=== PATIENT | female | born 1945 | race Caucasian/White ===

== ENCOUNTER 2017-06-04 18:58 | Emergency (ER) | payer MEDICARE, BC ==
[2012-06-09 15:25] VITALS: BMI 26.1
[2017-06-04 22:20] LABS: BASOPHILS 0.3 % (0-2); EOSINOPHILS 1.8 % (0-7); HEMATOCRIT 43.2 % (36.0-48.0); HEMOGLOBIN 14.6 g/dL (12-16); LYMPHOCYTES 24.1 % (15-50); MCH 30.7 pg (26.0-34.0); MCHC 33.8 g/dL (31.0-37.0); MCV 90.9 fL (80.0-100.0); MEAN PLATELET VOLUME 10.6 fL (7.4-10.4); MONOCYTES 9.1 % (2-11); NEUTROPHILS 64.7 % (40-80); PLATELET COUNT 182 10x3/uL (130-400); RBC 4.75 10x6/uL (4.00-5.40); RDW 13.2 % (11.5-14.5); WBC 6.7 10x3/uL (4.8-10.8)
[2017-06-04 22:26] LABS: APPEARANCE HAZY (CLEAR); COLOR YELLOW (YELLOW); LEUKOCYTE ESTERASE 1+ (NEGATIVE); SPECIFIC GRAVITY 1.015 (1.005-1.020)
[2017-06-04 22:27] LABS: BILIRUBIN NEGATIVE (NEGATIVE); GLUCOSE NEGATIVE (NEGATIVE); KETONE LARGE mg/dL (NEGATIVE); NITRITE NEGATIVE (NEGATIVE); PROTEIN TRACE mg/dL (NEGATIVE); UROBILINOGEN NORMAL (NORMAL)
[2017-06-04 22:29] LABS: BACTERIA FEW /hpf (NONE SEEN)
[2017-06-04 22:43] LABS: ALBUMIN 3.9 g/dL (3.4-5.0); ALKALINE PHOSPHATASE 58 U/L (46-116); ALT (SGPT) 22 U/L (10-68); CALC OSMOLALITY 279 mosm/kg (275-300); CALCIUM 8.7 mg/dL (8.5-10.1); CARBON DIOXIDE 23.8 mmol/L (21.0-32.0); CHLORIDE - SERUM 104 mmol/L (98-107); CREATININE - SERUM 0.7 mg/dL (0.6-1.3); GLUCOSE 102 mg/dL (74-106); POTASSIUM - SERUM 3.9 mmol/L (3.5-5.1); PROTEIN - SERUM 7.4 g/dL (6.4-8.2); SODIUM 139 mmol/L (136-145); UREA NITROGEN 18 mg/dL (7-18); eGFR NON AFRICAN AMERICAN 87 mL/min (90-120)
[2017-06-04 22:54] LABS: T4 THYROXIN - FREE 1.56 ng/dL (0.76-1.46); THYROID STIMULATING HORMONE 4.52 uIU/mL (0.36-3.74)
== END 2017-06-04 23:25 | disposition home or self-care (01) ==
LOC: D.ER 18:58
PROVIDERS: Physician Assistant
DX: I10 Essential (primary) hypertension (principal); N39.0 Urinary tract infection, site not specified; E03.9 Hypothyroidism, unspecified; R42 Dizziness and giddiness; R51 Headache; R53.1 Weakness; R53.83 Other fatigue; R63.4 Abnormal weight loss

== ENCOUNTER → 2018-12-15 18:58 | Outpatient (CLI) | payer MEDICARE, BC ==
[2012-06-09 15:25] VITALS: BMI 26.1
== END | disposition home or self-care (01) ==
LOC: D.MAMMO 12-01 15:30
DX: Z12.31 Encounter for screening mammogram for malignant neoplasm of breast (principal)

== ENCOUNTER 2020-08-09 13:30 | Outpatient (CLI) | payer MEDICARE, BC ==
[2012-06-09 15:25] VITALS: BMI 26.1
== END 2020-08-09 14:00 | disposition home or self-care (01) ==
LOC: D.MAMMO 13:30
PROVIDERS: ATTEND Family Medicine
DX: Z12.31 Encounter for screening mammogram for malignant neoplasm of breast (principal)